=== PATIENT | female | born 1990 | race African-American/Black ===

== ENCOUNTER 2019-01-05 03:30 | Emergency (ER) | payer SELFPAY ==
[2019-01-05] MEDS ORDERED: Proparacaine 0.5% Opth 15 ML BOT ONE (03:50)
[2019-01-05] MEDS ORDERED: Fluorescein Opthalmic Strip ONE (03:50)
== END 2019-01-05 04:32 | disposition home or self-care (01) ==
LOC: ERS 03:30
DX: H40.052 Ocular hypertension, left eye (principal); H10.9 Unspecified conjunctivitis; F17.210 Nicotine dependence, cigarettes, uncomplicated
CPT/HCPCS: 99283

== ENCOUNTER 2019-01-24 13:08 | Emergency (ER) | payer SELFPAY | END 2019-01-24 14:25 | disposition home or self-care (01) | LOC: ERS 13:08 | DX: R51 Headache (principal); F17.210 Nicotine dependence, cigarettes, uncomplicated | CPT/HCPCS: 99281 ==

== ENCOUNTER 2019-07-06 20:27 | Emergency (ER) | payer SELFPAY ==
[2019-07-06] MEDS ORDERED: Fluorescein Opthalmic Strip ONE (21:03)
[2019-07-06] MEDS ORDERED: Proparacaine 0.5% Opth 15 ML BOT ONE (21:03)
== END 2019-07-06 22:04 | disposition home or self-care (01) ==
LOC: ERS 20:27
DX: H16.002 Unspecified corneal ulcer, left eye (principal); F17.210 Nicotine dependence, cigarettes, uncomplicated
CPT/HCPCS: 99283

== ENCOUNTER 2019-10-09 02:26 | Emergency (ER) | payer BC, SELFPAY ==
[2019-10-09] MEDS ORDERED: Acetaminophen 500 MG TAB ONE (03:10)
[2019-10-09] MEDS ORDERED: diphenhydrAMINE 50 MG/ML VIAL ONE (03:10)
[2019-10-09] MEDS ORDERED: Metoclopramide HCl 10 MG/2 ML VIAL ONE (03:10)
== END 2019-10-09 04:18 | disposition home or self-care (01) ==
LOC: ERS 02:26
DX: R51 Headache (principal); F17.210 Nicotine dependence, cigarettes, uncomplicated
CPT/HCPCS: 96365; 96375; J1200; J2765